=== PATIENT | male | born 1945 | race Caucasian/White ===

== ENCOUNTER 2018-08-16 07:03 | Day surgery (SDC) | payer MEDICARE, OTHER ==
[~2018-08-16] VITALS: Ht 170.2 cm; Wt 108.5 kg
[2018-08-16] MEDS ORDERED: LACTATED RINGERS 1,000 ML IV SCH (07:44)
[2018-08-16] MEDS ORDERED: FENTANYL PF 100 MCG/2ML ONE ×2 (07:46→07:47)
[2018-08-16] MEDS ORDERED: MIDAZOLAM 1 MG/ML, 5ML ONE ×2 (07:47)
[2018-08-16] MEDS ORDERED: WARF4TAB65 PO (07:50)
[2018-08-16] MEDS ORDERED: SIMV10TA3 PO (07:50)
[2018-08-16] MEDS ORDERED: METH500T7 PO (07:50)
[2018-08-16] MEDS ORDERED: METF-649 PO (07:50)
[2018-08-16] MEDS ORDERED: LOSA50TA14 PO (07:50)
[2018-08-16] MEDS ORDERED: GLIP10TA24 PO (07:50)
[2018-08-16] MEDS ORDERED: WARF2TAB99 PO (07:50)
[2018-08-16 07:52] VITALS: BP 111/71
[2018-08-16 08:40] LABS: ANION GAP 6 mmol/L (5-15); CALCIUM 8.2 mg/dL (8.5-10.1); CHLORIDE 100 mmol/L (98-107)
[2018-08-16 08:44] LABS: ALANINE AMINOTRANSFERASE 60 U/L (12-78); ALKALINE PHOSPHATASE 165 U/L (45-117); BILIRUBIN,TOTAL 0.4 mg/dL (0.2-1.0); CREATININE 0.79 mg/dL (0.7-1.3)
[2018-08-16 09:10] LABS: INTERNATIONAL NORMALIZED RATIO 6.61 (0.93-1.1); PROTHROMBIN TIME 65.2 Seconds (9.6-11.5)
== END 2018-08-16 10:35 | disposition home or self-care (01) ==
LOC: OUT 07:03
PROVIDERS: ATTEND Internal Medicine
DX: B37.81 Candidal esophagitis (principal); E78.5 Hyperlipidemia, unspecified; I10 Essential (primary) hypertension; Z98.890 Other specified postprocedural states; Z87.891 Personal history of nicotine dependence; Z86.718 Personal history of other venous thrombosis and embolism
CPT/HCPCS: 36415; 43239; 80053; 82962; 85610; 88305; 93005; 99152; 99153; J2250; J3010

== ENCOUNTER 2018-08-25 09:14 | Day surgery (SDC) | payer MEDICARE, OTHER ==
[~2018-08-25] VITALS: Ht 170.2 cm; Wt 108.4 kg
[~2018-08-25 09:14] MED LIST: GLIP10TA24 PO; LOSA50TA14 PO; METF-649 PO; METH500T7 PO; SIMV10TA3 PO; WARF2TAB99 PO; WARF4TAB65 PO
[2018-08-25 09:44] VITALS: BP 117/75
[2018-08-25 10:11] LABS: INTERNATIONAL NORMALIZED RATIO 1.13 (0.93-1.1); PROTHROMBIN TIME 11.8 Seconds (9.6-11.5)
[2018-08-25] MEDS ORDERED: LIDOCAINE-MPF 1%, 5ML ONE (10:14)
[2018-08-25] MEDS ORDERED: MIDAZOLAM 1 MG/ML, 5ML ONE (10:51)
[2018-08-25] MEDS ORDERED: FENTANYL PF 100 MCG/2ML ONE ×2 (10:51)
[2018-08-25] MEDS ORDERED: FLUMAZENIL 0.1 MG/1 ML, 5ML ONE (10:51)
[2018-08-25] MEDS ORDERED: NALOXONE 1 MG/ML, 2ML ONE (10:52)
== END 2018-08-25 12:30 | disposition home or self-care (01) ==
LOC: OUT 09:14
PROVIDERS: ATTEND Internal Medicine
DX: K76.89 Other specified diseases of liver (principal); E78.5 Hyperlipidemia, unspecified; I10 Essential (primary) hypertension; E66.9 Obesity, unspecified; Z68.30 Body mass index [BMI] 30.0-30.9, adult; Z72.89 Other problems related to lifestyle; Z98.890 Other specified postprocedural states; Z87.891 Personal history of nicotine dependence; Z86.718 Personal history of other venous thrombosis and embolism
CPT/HCPCS: 36415; 47000; 77012; 85610; 88307; 99156; J2250; J3010; 99157; J2310